=== PATIENT | male | born 1950 | race Caucasian/White ===

== ENCOUNTER 2022-10-26 16:07 | Inpatient (IN) | payer OTHER, MEDICAID ==
[~2022-10-26] VITALS: Ht 167.6 cm; Wt 90.7 kg
--- NOTE | 2022-10-26 02:20 | NUR ---
TRANSPORT PT FROM ER BED 1 TO RM 108B ON CARESCAPE VENTILATOR WITH NO INCIDENT. BMV AT BEDSIDE, PT SPO2 @ 100% THROUGHOUT TRANSPORT. PT NOW IS RESTING COMFORTABLY, CARESCAPE IS PLUGGED INTO RED OUTLET, ALARMS ARE ON AND AUDIBLE, SYMMETRICAL CHEST RISE AND FALL NOTED, NO SIGNS OF RESPIRATORY DISTRESS NOTED AT THIS TIME. RN AT BEDSIDE. Addendum: 10/27/22 at 0531 by Bert Soto RT TIME CORRECTION 22:20
[2022-10-26 16:07] VITALS: BP 145/68
[~2022-10-26 16:07] MED LIST: CARB100C26; GLIP5TAB13
[2022-10-26] MEDS ORDERED: NACL 0.9% 1,000 ML IV ONE (16:25)
[2022-10-26 17:15] LABS: HEMATOCRIT 30.6 % (36-52); HEMOGLOBIN 9.6 g/dL (12.0-18.0); MEAN CORPUSCULAR HEMOGLOBIN 30 pg (27-31); MEAN CORPUSCULAR HGB CONC 31 g/dL (33-37); MEAN CORPUSCULAR VOLUME 94.8 fL (80-94); PLATELET COUNT (AUTO) 591 K/uL (140-450); RED BLOOD CELL COUNT(AUTO) 3.23 MIL/uL (4.20-6.10); RED CELL DISTRIBUTION WIDTH 19.6 % (11.6-13.7); WHITE BLOOD COUNT (AUTO) 16.3 K/uL (4.8-10.8)
[2022-10-26 17:16] LABS: APPEARANCE,URINE SL CLOUDY (CLEAR); BILIRUBIN,URINE NEGATIVE (NEGATIVE); BLOOD, URINE 2+ (NEGATIVE); COLOR,URINE YELLOW (YELLOW); LEUKOCYTE ESTERASE ,URINE 1+ (NEGATIVE); NITRITE, URINE NEGATIVE (NEGATIVE); UGLUCOSE NEGATIVE (NEGATIVE)
[2022-10-26 17:30] LABS: RBC,URINE 11-20 (MOD) /HPF (0-5)
[2022-10-26 17:43] LABS: ALBUMIN 1.7 g/dL (3.4-5.0); ANION GAP 8.1 (8-16); ASPARTATE AMINOTRANSFERASE 20 U/L (15-37); CARBON DIOXIDE 37.1 mmol/L (21-32); CHLORIDE 105 mmol/L (98-107); CREATININE 0.7 mg/dL (0.6-1.3); GFR ARICAN-AMERICAN 143 mL/min (>90); GLUCOSE 210 mg/dL (74-106); POTASSIUM 4.2 mmol/L (3.5-5.1); SODIUM SERUM 146 mmol/L (136-145); TOTAL BILIRUBIN 0.2 mg/dL (0.0-1.0); UREA NITROGEN, BLOOD 33 mg/dL (7-18)
[2022-10-26] MEDS ORDERED: ASPIRIN 81 MG TAB.CHEW PEG ONE (17:55)
[2022-10-26] MEDS ORDERED: FUROSEMIDE 40 MG/4 ML VIAL IVP ONE ×2 (17:55→19:02)
[2022-10-26] MEDS ORDERED: PIPERACILLIN/TAZOBACTAM 3.375 GM in DEXTROSE 5% 50 ML IV ONE (17:55)
[2022-10-26 18:24] LABS: LYMPHOCYTES % (MANUAL) 2 % (20-46); MONOCYTES % (MANUAL) 2 % (5-12)
[2022-10-26] MEDS ORDERED: FURO-570 GT (18:41)
[2022-10-26] MEDS ORDERED: FENT25TD TD (18:41)
[2022-10-26] MEDS ORDERED: KEP500L GT (18:41)
[2022-10-26] MEDS ORDERED: SYN.05 PO (18:41)
[2022-10-26] MEDS ORDERED: BUME1TAB92 GT (18:41)
[2022-10-26] MEDS ORDERED: ACET-8905 GT/PO (18:41)
[2022-10-26] MEDS ORDERED: PRO5 PO (18:41)
[2022-10-26] MEDS ORDERED: OMEPRA (18:41)
[2022-10-26] MEDS ORDERED: HEPARIN PER PHARMACY MC PRN (19:00)
[2022-10-26] MEDS ORDERED: hePARIN / DEXT 5% PREMIX 250 ML IV ONE (19:00)
[2022-10-26] MEDS ORDERED: cefTRIAXone 1,000 MG VIAL ONE (19:01)
[2022-10-26] MEDS ORDERED: ASPIRIN 81 MG TAB.CHEW ONE (19:02)
--- NOTE | 2022-10-26 19:51 | NUR ---
Report received from AM shift nurse. Das catheter inserted successfully per orders. 300 mL urine out, yellow/clear.
--- NOTE | 2022-10-26 19:55 | NUR ---
Patient lying on bed, on monitor, seizure pads in place, pillow support, eyes open, trach and vent, chest rise and fall symmetrical, no s/s of distress or s/s of pain via FLACC scale.
[2022-10-26] MEDS ORDERED: PIPERACILLIN/TAZOBACTAM 3.375 GM VIAL IV ONE (20:11)
--- NOTE | 2022-10-26 20:23 | NUR ---
Attempted to print wound care pictures, unable to due to printer not working. Wounds documented.
--- NOTE | 2022-10-26 20:26 | NUR ---
No PTT result for labs, Heparin drip not started. Dr. Saenz verbally informed. Dr. Saenz verbalized understanding, and is ordering PTT lab.
--- NOTE | 2022-10-26 20:40 | NUR ---
mobile battery technician at bedside drawing PTT and PT/INR labs.
[2022-10-26 21:42] LABS: PROTHROMBIN TIME 10.7 secs (10.8-13.4)
[2022-10-26] MEDS ORDERED: ALBUTEROL SULFATE/IPRATROPIU 3 ML SOL IH PRN (22:00)
[2022-10-26] MEDS ORDERED: ZOLPIDEM 5 MG TAB PO PRN (22:00)
[2022-10-26] MEDS ORDERED: guaiFENesin DM 200/20 MG-10 ML 10 ML UDC PO PRN (22:00)
[2022-10-26] MEDS ORDERED: DOCUSATE SODIUM 100 MG GELCAP PO PRN (22:00)
[2022-10-26] MEDS ORDERED: NACL 0.9% 1,000 ML IV SCH (22:00)
[2022-10-26] MEDS ORDERED: ACETAMINOPHEN 325 MG TAB PO PRN (22:00)
[2022-10-26] MEDS ORDERED: ONDANSETRON 4 MG/2 ML VIAL IM/IVP PRN (22:00)
[2022-10-26] MEDS ORDERED: HYDROcodone/APAP 7.5/325 MG 1 TAB PO PRN (22:00)
--- NOTE | 2022-10-26 22:13 | NUR ---
Patient will be admitted to care of Kirstin REID. Admited to tele. Will go to room 108B. Belongings list completed. Report to Kirstin REID, Kirstin REID verbalized understanding of report, no further questions.
--- NOTE | 2022-10-26 22:20 | NUR ---
PT WAS ADMITTED TO [facility] DEPART FROM ER THRU [facility] WITH DIAGNOSIS OF PNA AND UTI. PT IS APHASIC AND BEDBOUND. PT IS TRACH TO VENT WITH FI02 OF 40, VT-450 RATE OF 12 AND PEEP OF 6. PT IS ON NPO AND WILL START G-TUBE FEENING ON THE MORNING. PT HAS CAGLE CATHETER INSERTED TODAY AT ER. PT HAS LEFT AC GAUGE 18 SALINE LOCK. PT HAS LEFT FOOT OPEN WOUND, SACRAL OPEN WOUND , LEFT SIDE SCROTUM OPEN WOUND. NO S/S OF RESPIRATORY DISTRESS NOTED. ALL SAFETY MEASURES IMPLEMENTED. BED IN LOW POSITION, BED WHEELS ON LOCK AND CALL LIGHT WITHIN REACH.
[2022-10-26 23:16] LABS: CHOL/HDL RATIO 2.3 (1-4.5); FREE T4 (FREE THYROXINE) 1.09 ng/dL (0.76-1.46); MAGNESIUM 2.1 mg/dL (1.8-2.4); THYROID STIMULATING HORMONE 8.92 uIU/mL (0.34-3.74)
[2022-10-27] VITALS (9 sets, daily range): BP systolic 106–143; BP diastolic 38–55
--- NOTE | 2022-10-27 | NUR ---
PT WAS SLEEPING. CHEST RISE AND FALL SYMMETRICALLY NOTED. RESPIRATION IS EVEN AND UNLABORED SATING AT 96%. ALL SAFETY MEASURES IMPLEMENTED. BED IN LOW POSITION, BED WHEELS ON LOCK AND CALL LIGHT WITHIN REACH.
[2022-10-27] MEDS ORDERED: hePARIN / DEXT 5% PREMIX 250 ML IV ONE (02:39)
[2022-10-27] MEDS ORDERED: hePARIN / DEXT 5% PREMIX 250 ML IV PRN (02:45)
--- NOTE | 2022-10-27 03:15 | NUR ---
HEPARIN DRIP WAS GIVEN TO PT WITH STARING RATE OF 900 UNITS/HR AND BOLUS RATE OF 4000 UNITS OF IV PUSH, ACCORDING TO STEVEN PHARMACIST. NO S/S OF RESPIRATORY DISTRESS NOTED. ALL SAFETY MEASURES IMPLEMENTED. BED IN LOW POSITION, BED WHEELS ON LOCK AND CALL LIGHT WITHIN REACH.
[2022-10-27] MEDS ORDERED: PIPERACILLIN/TAZOBACTAM 3.375 GM VIAL IV ONE (05:45)
[2022-10-27] MEDS: PIPERACILLIN/TAZOBACTAM 3.375 GM in DEXTROSE 5% 50 ML IV SCH ×3 (05:52→17:57)
[2022-10-27] MEDS: BLOOD GLUCOSE MONITORING 1 DEV DEV FS SCH ×4 (07:00→20:30)
--- NOTE | 2022-10-27 07:00 | NUR ---
PT BLOOD SUGAR IS 133. NO INSULIN COVERAGE NEEDED.
--- NOTE | 2022-10-27 07:15 | NUR ---
PT IS STABLE. ENDORSED PT TO MORNING SHIFT NURSE FOR CONTINUITY OF CARE.
--- NOTE | 2022-10-27 07:20 | NUR ---
RECEIVED PT FROM NIGHT RN, PT IS ON A TRACH TO VENT, LYING ON THE BED , ON SEIZURE PRECAUTION, CAGLE CATHETER IN PLACE FOR INCONTINENCE, ON ISOLATION FOR CONTACT FOR TRAVON NERY, PT HAS AN IV LINE ON THE LEFT AC G. 18 WITH HEPARIN DRIP INFUSING AT 900 UNITS/HR, NO SIGN OF DISTRESS NOTED AND WILL CONTINUE TO MONITOR PT.
[2022-10-27 07:35] LABS: ANION GAP 6.7 (8-16); CARBON DIOXIDE 37.9 mmol/L (21-32); CREATININE 0.6 mg/dL (0.6-1.3); POTASSIUM 3.6 mmol/L (3.5-5.1)
[2022-10-27 07:39] LABS: BASOPHILS # (AUTO) 0.1 K/uL (0.00-0.22); BASOPHILS % (AUTO) 0.6 % (0.0-2.0); EOSINOPHILS # (AUTO) 0.1 K/uL (0-0.4); EOSINOPHILS % (AUTO) 0.8 % (0.0-4.0); HEMATOCRIT 26.2 % (36-52); HEMOGLOBIN 8.6 g/dL (12.0-18.0); LYMPHOCYTES # (AUTO) 1.2 K/uL (2.0-11.5); LYMPHOCYTES % (AUTO) 13.8 % (20.5-51.1); MEAN CORPUSCULAR HEMOGLOBIN 30 pg (27-31); MEAN CORPUSCULAR HGB CONC 33 g/dL (33-37); MONOCYTES # (AUTO) 0.7 K/uL (0.8-1.0); MONOCYTES % (AUTO) 8.6 % (1.7-9.3); NEUTROPHILS # (AUTO) 6.6 K/uL (1.8-7.7); NEUTROPHILS % (AUTO) 76.2 % (42.2-75.2); PLATELET COUNT (AUTO) 473 K/uL (140-450); RED BLOOD CELL COUNT(AUTO) 2.82 MIL/uL (4.20-6.10); RED CELL DISTRIBUTION WIDTH 18.1 % (11.6-13.7); WHITE BLOOD COUNT (AUTO) 8.7 K/uL (4.8-10.8)
[2022-10-27] MEDS: ALBUTEROL SULFATE/IPRATROPIU 3 ML SOL IH SCH ×3 (08:12→19:21)
--- NOTE | 2022-10-27 08:12 | NUR ---
RECEIVED ON A [employer] R860 VENTILATOR PLUGGED INTO RED OUTLET TOLERATING WITHOUT ADVERSE REACTIOPNS NOTED TO A SHILEY XLT #7 AIRWAY SECURED WITH TRACH TIE CUFF PRESSURE CHECKED NOTED AMBU BAG AT BEDSIDE STAB;E GOOD CHEST RISE DEEP TRACHEAL SUCTION FOR MODERATE YELLOW/HAZY SECRETIONS AIRWAY PATENT
--- NOTE | 2022-10-27 08:59 | NUR ---
PATIENT HAS BEEN SCREENED AND CATEGORIZED HIGH NUTRITION RISK. PATIENT WILL BE SEEN WITHIN 1-[address] RECEIVED REFERRAL REQUEST FOR TF AND NUTRITION CONSULT FOR WOUNDS/PRESSURE ULCERS REVIEWED BY REJI GUNTER RD
[2022-10-27] MEDS ORDERED: LEVOTHYROXINE 0.05 MG TAB PO SCH (09:00)
[2022-10-27] MEDS: levETIRAcetam 100 MG/ML ORASYR GT SCH ×2 (09:00→20:16)
[2022-10-27] MEDS: PANTOPRAZOLE 40 MG TABEC PO SCH (09:00)
[2022-10-27] MEDS ORDERED: MIDODRINE 5 MG TAB PO SCH (09:00)
--- NOTE | 2022-10-27 11:35 | NUR ---
WOUND ASSESSMENT WAS DONE TO PT NOW.
--- NOTE | 2022-10-27 11:47 | NUR ---
WOUND CARE EVALUATION NOTE: SKIN ASSESSMENT DONE WITH PRIMARY RN SUZI ON THIS 72 Y/O PT ADMITTED FROM SNF WITH INITIAL DX PNEUMONIA. PAST MEDICAL HX INCLUDES QUADRIPLEGIA AND HX OF DEMENTIA, STROKE, DM, HTN, CHRONIC RESPIRATORY FAILURE S/P TRACH, APHASIA S/P PEG, CHF AND SEIZURE DISORDER. ALL ABOVE INFORMATION OBTAINED FROM ADMISSION H&P. PT EYES OPEN WHEN TOUCHED. SKIN IS WARM AND DRY, UPPER EXTREMITIES +3 EDEMA WITH XEROSIS. BLE NO HAIR GROWTH, LLE +2 EDEMA. DORSAL PEDAL PULSES PRESENT AND DIMINISHED DUE TO EDEMA. CAPILLARY REFILLED < 2 SEC. X 10 TOES. INCONTINENT OF BOWEL X1 DURING ASSESSMENT. F/C PATENT WITH MODERATE AMOUNT YELLOW COLOR URINE OUT PUT OBSERVED. PLAN OF CARE DISCUSSED WITH PRIMARY RN. POC DISCUSSED WITH DR. STEIN AT BED SIDE, RECOMMEND UROLOGIST CONSULT +3 EDEMA TO SCROTAL AREA INTEGUMENTARY: -ORAL MEMBRANE PALE IN COLOR, DRY SCABBING. LIPS, CHEEKS SKIN DRY, NO OPEN WOUNDS -TRACH SITE AND GT SITE SUSI STOMA SKIN DRY AND CLEAN. SKIN INTACT. -ABDOMEN DISTENDED, SOFT -MOISTURE ASSOCIATED SKIN DAMAGE(MASD) TO: B/L GROINS, MEDIAL THIGHS TO SCROTAL. Scrotal edema with SKIN EROSION 2X1CM SUPERFICIAL DEPTH, MOIST, NO ODOR, SUSI WOUND SKIN MOIST INTACT -PRESSURE INJURY UN-STAGEABLE TO SACROCOCCYX 4X2.5CM, IRREGULAR SHAPE, WOUND BED 100% BROWN/YELLOW SOFT SLOUGH TISSUE, NO ODOR, SUSI-WOUND SKIN MOIST, DENUDED, WITH OLD HEALED SCAR TISSUE -DIABETIC ULCER LEFT PLANTAR FOOT 4.5X4X0.1CM WOUND BED IS RED 75% GRANULATING TISSUE, 25 % SCATTERED BROWN SCABBING SKIN, MOIST, NO ODOR, SUSI WOUND SKIN DRY SCALY SKIN. RECOMMENDATIONS: -UROLOGIST CONSULT SCROTAL EDEMA -ORAL CARE Q SHIFT -APPLY HYDRAGUARD ALL LIMBS AND TRUNK OF BODY, B/L GROINS, MEDIAL THIGHS TO SCROTAL EROSION BID AND PRN IF SOILING -USE ROLLED PILLOWCASE TO ELEVATE/OFFLOAD SCROTAL - CLEANSE SACRALCOCCYX WITH WOUND CLEANSING SOLUTION AND APPLY THERAHONEY GEL COVER WITH DRY DRESSING QD AND PRN IF SOILING -LEFT PLANTAR FOOT APPLY MOIST BETADINE 4X4 GAUZES, WRAP WITH KERLIX ROLL QD AND PRN IF SOILING -APPLY HEEL PROTECTOR AND OFFLOADING BILATERAL HEELS -POSITIONING: TURN AND REPOSITION PATIENT Q 2H OR SOONER USE PILLOWS TO KEEP BONY PROMINENCES FROM DIRECT CONTACT WITH SURFACES USE REPOSITIONING WEDGES TO PROVIDE 30-DEGREE ANGLE FOR SIDE LYING POSITIONS OFFLOADING OR FOAM DRESSING TO ALL TUBING TO PREVENT MEDICAL DEVICES RELATED PRESSURE INJURY -RE-EVALUATING AND MANAGING INCONTINENCE MONITOR SKIN CONDITION DURING POSITION CHANGE DO NOT MASSAGE REDNESS, BONY PROMINENCES FREQUENT SUSI-CARE AND PROVIDE BARRIER CREAMS PRN IF SOILING MOISTURE CONTROL BY OFFER BED PENN/URINAL /ABSORBENT PAD TO WICK AND HOLD MOISTURE. MAY OBTAIN ORDER FOR FLEX SEAL, RECTAL BAG OR CAGLE CATHETER PER PHYSICIAN ORDER UNLESS OTHERWISE CONTRAINDICATED KEEP SKIN DRY AND PROTECT FROM FRICTION -MANAGE FRICTION/SHEAR/MOBILITY KEEP HOB AT THE LOWEST LEVEL OF ELEVATION NO MORE THAN 30 DEGREES UNLESS OTHERWISE CONTRAINDICATED USE LIFT SHEET OR TRANSFER DEVICE TO MOVE PATIENT AND PREVENT LATERAL SHEER. CONSIDER TRAPEZE IF APPROPRIATE PROTECT HEELS, ELBOWS BONY PROMINENCES WITH SKIN BERRIES OR FOAM DRESSING IF EXPOSED TO FRICTION OFFLOAD BILATERAL HEELS BY PLACING PILLOWS UNDER CALVES AT ALL TIMES, UNLESS OTHERWISE CONTRAINDICATED -PRESSURE REDISTRIBUTION SURFACE THERAPY IVANA ISOFLEX RUDDY MATTRESS -NUTRITION: PLEASE FOLLOW RD RECOMMENDATIONS AND OFFER NUTRITION SUPPLEMENTS IF ORDERED.
--- NOTE | 2022-10-27 12:01 | NUR ---
RESTING COMFORTABLY GOOD CHEST RISE DEEP TRACHEAL SUCTION FOR LARGE SEMI THICK TO THIN YELLOW SECRETIONS AIRWAY PATENT SATURATION 97% IN FIO2 OF 40% PEEP 5cmH2O TITRATED FIO2 TO 35% SUZI/RN NOTIFIED
[2022-10-27] MEDS ORDERED: DEXTROSE 5% 1,000 ML IV SCH (12:40)
[2022-10-27] MEDS: THERAHONEY GEL 42.5 GM TP SCH (13:05)
[2022-10-27] MEDS: GAUZE TP SCH (13:05)
[2022-10-27] MEDS: HYDRAGUARD CREAM TP SCH (13:05)
--- NOTE | 2022-10-27 13:15 | NUR ---
PT WAS CLEANED AND REPOSITIONED NOW.
--- NOTE | 2022-10-27 13:45 | NUR ---
FNS RECOMMENDED THAT PT BE GIVEN TUBE FEEDING OF GLUCERNA 1.2 START GOAL IS 10ML, WITH A GOAL OF 65ML/HR, WATER FLUSH OF 150Q4H AND MARKELL BID
--- NOTE | 2022-10-27 15:29 | NUR ---
10/27/22 RD INITIAL ASSESSMENT COMPLETED PLEASE REFER TO NUTRITION ASSESSMENT UNDER CARE ACTIVITY FOR ESTIMATED NUTRITIONAL NEEDS. 1. RECOMMEND INCREASING GLUCERNA 1.2 TO 65 ML/HR GOAL RATE TOLERATED, FWF 150 ML Q4H TOLERATED -RECOMMEND MARKELL BID FOR WOUND SUPPORT (PROVIDES 160 KCAL AND 5 GM PROTEIN DAILY) - WITH MARKELL BID, PROVIDES 1560 ML TOTAL VOLUME, 2032 KCAL, 99 GM PROTEIN AND 2156 ML FREE WATER DAILY MEETING 100% ESTIMATED KCAL NEEDS AND 93% ESTIMATED PROTEIN NEEDS; ADEQUATE - START TF AT 1O ML/HR INCREASE BY 1O ML Q4H UNTIL GOAL IS REACHED TOLERATED 2. MONITOR GI SYMPTOMS, GASTRIC RESIDUALS AND NUTRITION RELATED LAB VALUES 3. CONSULT RD PRN 4. RD TO FOLLOW-UP 3-5 DAYS, MODERATE RISK REVIEWED BY REJI GUNTER RD
[2022-10-27] MEDS: BUMETANIDE 1 MG/4 ML VIAL IV SCH ×3 (15:30→20:13)
--- NOTE | 2022-10-27 15:31 | NUR ---
DR. ROBBINS CAME AND SAW PT AND SAID THAT FLUIDS WILL BE DISCONTINUED FOR PT AND MD WILL ORDER LASIX
--- NOTE | 2022-10-27 15:42 | NUR ---
HEPARIN DRIP WAS STOPPED NOW PER DR. ROBBINS'S VERBAL ORDER.
--- NOTE | 2022-10-27 19:14 | NUR ---
ENDORSED PT TO NIGHT RN FOR CONTINUITY FO CARE, PT IS STABLE AT THIS TIME.
--- NOTE | 2022-10-27 19:15 | NUR ---
RECEIVED PT FROM MORNING SHIFT NURSE. PT IS APHASIC AND BEDBOUND. PT IS TRACH TO VENT WITH FI02 OF 35, VT-450 RATE OF 12 AND PEEP OF 5. PT IS G-TUBE FEEDING RUNNING WITH GLUCERNA 1.2 AT 10CC/HR WITH WATER FLUSH OF 150 EVERY 4HRS. TO INCREASE 10ML EVERY 6 HRS AND GOAL OF 65ML. PT HAS CAGLE CATHETER. PT HAS LEFT AC GAUGE 18 RUNNING WITH NS AT TKO. PT HAS LEFT FOOT OPEN WOUND, UNSTAGABLE ULCER ON SACRAL, LEFT SIDE SCROTUM OPEN WOUND. NO S/S OF RESPIRATORY DISTRESS NOTED. ALL SAFETY MEASURES IMPLEMENTED. BED IN LOW POSITION, BED WHEELS ON LOCK AND CALL LIGHT WITHIN REACH.
--- NOTE | 2022-10-27 19:33 | NUR ---
FOUND PATIENT ON PRVC VT 450, R 12, PEEP OF 5 AND 35% FIO2. SUCTION, FLOWMETER AND AMBU BAG AT BEDSIDE. SUCTIONED THICK WHITE SECRETIONS FROM PATIENTS TRACHEA. VENTILATOR IS PLUGGED INTO RED OUTLET. WILL CONTINUE TO MONITOR PATIENT.
[2022-10-27] MEDS: carvediloL 3.125 MG TAB PO SCH (20:16)
--- NOTE | 2022-10-27 20:16 | NUR ---
ALL SCHEDULED AND PRESCRIBED MEDICATION WAS GIVEN TO PT PER MD ORDER. ALL SAFETY MEASURES IMPLEMENTED. BED IN LOW POSITION, BED WHEELS ON LOCK AND CALL LIGHT WITHIN REACH.
--- NOTE | 2022-10-27 20:30 | NUR ---
PT BLOOD GLUCOSE IS 119. NO INSULIN COVERAGE NEEDED.
--- NOTE | 2022-10-27 22:00 | NUR ---
PT WAS GIVEN WARM BLANKET. NO S/S OF RESPIRATORY DISTRESS NOTED. ALL SAFETY MEASURES IMPLEMENTED. BED IN LOW POSITION, BED WHEELS ON LOCK AND CALL LIGHT WITHIN REACH.
[2022-10-28] VITALS (10 sets, daily range): BP systolic 105–132; BP diastolic 37–40
[2022-10-28] MEDS: PIPERACILLIN/TAZOBACTAM 3.375 GM in DEXTROSE 5% 50 ML IV SCH ×5 (00:13→23:43)
[2022-10-28] MEDS: HYDRAGUARD CREAM TP SCH ×2 (01:01→13:00)
--- NOTE | 2022-10-28 04:00 | NUR ---
PT IS SLEEPING. CHEST RISE AND FALL SYMMETRICALLY NOTED. RESPIRATION IS EVEN AND UNLABORED. ALL SAFETY MEASURES IMPLEMENTED. BED IN LOW POSITION, BED WHEELS ON LOCK AND CALL LIGHT WITHIN REACH.
[2022-10-28] MEDS: BUMETANIDE 1 MG/4 ML VIAL IV SCH ×3 (04:05→20:07)
--- NOTE | 2022-10-28 05:00 | NUR ---
MORNING CARE WITH ORAL CARE WAS DONE TO PT. NO S/S OF RESPIRATORY DISTRESS NOTED. ALL SAFETY MEASURES IMPLEMENTED. BED IN LOW POSITION, BED WHEELS ON LOCK AND CALL LIGHT WITHIN REACH.
[2022-10-28] MEDS: LEVOTHYROXINE 0.025 MG TAB PO SCH (05:38)
[2022-10-28] MEDS: BLOOD GLUCOSE MONITORING 1 DEV DEV FS SCH ×3 (06:51→20:09)
[2022-10-28 07:13] LABS: BASOPHILS # (AUTO) 0.1 K/uL (0.00-0.22); BASOPHILS % (AUTO) 0.8 % (0.0-2.0); EOSINOPHILS # (AUTO) 0.1 K/uL (0-0.4); EOSINOPHILS % (AUTO) 1.4 % (0.0-4.0); HEMATOCRIT 23.6 % (36-52); HEMOGLOBIN 7.9 g/dL (12.0-18.0); LYMPHOCYTES # (AUTO) 1.5 K/uL (2.0-11.5); LYMPHOCYTES % (AUTO) 19.1 % (20.5-51.1); MEAN CORPUSCULAR HEMOGLOBIN 31 pg (27-31); MEAN CORPUSCULAR HGB CONC 33 g/dL (33-37); MEAN CORPUSCULAR VOLUME 91.6 fL (80-94); MONOCYTES # (AUTO) 0.6 K/uL (0.8-1.0); MONOCYTES % (AUTO) 8.4 % (1.7-9.3); NEUTROPHILS # (AUTO) 5.4 K/uL (1.8-7.7); NEUTROPHILS % (AUTO) 70.3 % (42.2-75.2); PLATELET COUNT (AUTO) 434 K/uL (140-450); RED BLOOD CELL COUNT(AUTO) 2.58 MIL/uL (4.20-6.10); RED CELL DISTRIBUTION WIDTH 19.9 % (11.6-13.7); WHITE BLOOD COUNT (AUTO) 7.7 K/uL (4.8-10.8)
--- NOTE | 2022-10-28 07:30 | NUR ---
PT IS STABLE. ENDORSED PT TO MORNING SHIFT NURSE FOR CONTINUITY OF CARE.
[2022-10-28 07:46] LABS: ANION GAP 7.1 (8-16); CREATININE 0.6 mg/dL (0.6-1.3); POTASSIUM 3.1 mmol/L (3.5-5.1)
[2022-10-28 08:07] LABS: T4 (THYROXINE) 7.6 ug/dL (4.5-12.0)
[2022-10-28] MEDS ORDERED: ENOXAPARIN 40 MG/0.4 ML SYR SUBQ SCH (09:00)
[2022-10-28] MEDS ORDERED: ASPIRIN 81 MG TAB.CHEW PO SCH (09:00)
[2022-10-28] MEDS: ATORVASTATIN 20 MG TAB PO SCH (09:45)
[2022-10-28] MEDS: carvediloL 3.125 MG TAB PO SCH ×2 (09:46→20:08)
[2022-10-28] MEDS: lisinopriL 5 MG TAB PO SCH (09:46)
[2022-10-28] MEDS: PANTOPRAZOLE 40 MG TABEC PO SCH (09:46)
[2022-10-28] MEDS: levETIRAcetam 100 MG/ML ORASYR GT SCH ×2 (10:16→20:07)
--- NOTE | 2022-10-28 10:25 | NUR ---
DC PLANNING LATE ENTRY, COLLAT INFO GATHERED AT 1530 ON 10/27 OUTREACHED TO [facility], [facility] ADMIN TO GATHER COLLATERAL INFORMATION. [facility] REPORTS PT IS SUBACUTE PT, ADMISSION DATE 07-05-2016. [facility] REPORTS PTS EMERGENCY CONTACT ÁNGELA VERA, SISTER, AND AMY MANCILLA NIECE, . ÁNGELA IS REPORTED TO BE RESPONSIBLE [employer] AND MDM.PT IS TRAYC TO VENT, NON VERBAL AND IS TOTAL CARE WITH FACILITY. [facility] REPORTS PT IS NOT [facility] CONNECTED NOR CONSERVED TO HER KNOWLEDGE . [facility] REPORTS DC PLAN OS FOR PT TO RETURN TO [facility] WHEN MEDICALLY STABLE
--- NOTE | 2022-10-28 10:30 | NUR ---
NO DISTRESS NOTED EQUAL CHEST RISE AIRWAY PATENT
[2022-10-28] MEDS: POTASSIUM CHLORIDE 10 MEQ TABER PO PRN (12:31)
[2022-10-28] MEDS: GAUZE TP SCH (13:00)
[2022-10-28] MEDS ORDERED: acetaZOLAMIDE sodium 500 MG VIAL IVP SCH (13:10)
[2022-10-28] MEDS: ALBUTEROL SULFATE/IPRATROPIU 3 ML SOL IH SCH ×2 (13:17→20:24)
[2022-10-28] MEDS ORDERED: KCL 20 MEQ/WATER INJ PREMIX 200 ML IV SCH (13:30)
[2022-10-28] MEDS ORDERED: acetaZOLAMIDE sodium 500 MG in NACL 0.9% 50 ML IV SCH (14:00)
[2022-10-28] MEDS: THERAHONEY GEL 42.5 GM TP SCH (16:19)
--- NOTE | 2022-10-28 20:00 | NUR ---
RECEIVED PT IN BED ASLEEP. NO S/SX OF PAIN NOR DISCOMFORT. TRACH TO VENT WITH SETTING ORDERED. G-TUBE IN PLACE, PLACEMENT VERIFIED VIA AUSCULTATION, NO RESIDUAL NOTED FROM G-TUBE, HEAD OF THE BED ELEVATED FOR ASPIRATION PRECAUTION. SKIN WARM AND DRY TO TOUCH. SAFETY PRECAUTION IN PLACE, CALL LIGHT IN REACH.
[2022-10-28] MEDS: INSULIN LISPRO SLIDING SCALE 100 UNITS/ML VIAL SUBQ PRN (20:08)
--- NOTE | 2022-10-28 20:24 | NUR ---
RECEIVED PT TRACH TO VENT WITH A SHILEY XLT 7 AIRWAY PATENT AND SECURE ON A GE CARESCAPE R860 VENTILATOR SETTINGS AC PRVC VT450, RR12, PEEP+6, FIO2 35%. NO SIGNS OF RESPIRATORY DISTRESS NOTED AT THIS TIME PT'S CURRENT SPO2 94%. ANTERIOR AUSCULTATION REVEALED BS COARSE CRACKLES THROUGHOUT ALL LUNG REYNOSO, DEEP TRACHEAL SXN FOR MOD PINK/YELLOW THICK SECRETIONS. HOB ELEVATED, AMBU BAG AT BEDSIDE, VENT PLUGGED INTO RED OUTLET, ALARMS ARE ON AND AUDIBLE. WILL CONTINUE TO MONITOR.
--- NOTE | 2022-10-28 22:00 | NUR ---
REPOSITIONED PT. ORAL CARE RENDERED.
[2022-10-29] VITALS (14 sets, daily range): BP systolic 77–153; BP diastolic 27–51
--- NOTE | 2022-10-29 | NUR ---
PATIENT HAD A BOWEL MOVEMENT, CLEANED PT. G-TUBE SITE CLEANED AND CHANGED DRESSING. REPOSITIONED PT FOR COMFORT. HEAD OF THE BED ELEVATED, NO RESIDUAL FROM G-TUBE.
[2022-10-29] MEDS: HYDRAGUARD CREAM TP SCH ×2 (00:25→13:00)
--- NOTE | 2022-10-29 02:15 | NUR ---
PATIENT IS ASLEEP. NO S/SX OF ACUTE RESPIRATORY DISTRESS. CALL LIGHT IN REACH.
--- NOTE | 2022-10-29 04:00 | NUR ---
REPOSITIONED PATIENT. ORAL CARE RENDERED.
[2022-10-29] MEDS: PIPERACILLIN/TAZOBACTAM 3.375 GM in DEXTROSE 5% 50 ML IV SCH ×3 (05:04→17:47)
[2022-10-29] MEDS: LEVOTHYROXINE 0.025 MG TAB PO SCH (05:38)
--- NOTE | 2022-10-29 06:14 | NUR ---
MADE COMFORTABLE IN BED. ALL NEEDS ATTENDED TO. NO S/SX OF DISTRESS NOTED. SAFETY PRECAUTIONS MAINTAINED DURING THE SHIFT.
[2022-10-29] MEDS: BLOOD GLUCOSE MONITORING 1 DEV DEV FS SCH ×4 (06:30→20:05)
[2022-10-29 07:16] LABS: ANION GAP 7.6 (8-16); CARBON DIOXIDE 37.4 mmol/L (21-32); CREATININE 0.6 mg/dL (0.6-1.3)
[2022-10-29] MEDS: ALBUTEROL SULFATE/IPRATROPIU 3 ML SOL IH SCH ×2 (07:24→13:01)
--- NOTE | 2022-10-29 07:26 | NUR ---
ENDORSED CARE TO AM NURSE FOR CONTINUITY OF CARE. PT ASLEEP. NO RESPIRATORY DISTRESS.
[2022-10-29] MEDS ORDERED: NACL 0.9% 500 ML IV SCH (08:15)
[2022-10-29 08:20] LABS: BASOPHILS # (AUTO) 0.1 K/uL (0.00-0.22); EOSINOPHILS # (AUTO) 0.2 K/uL (0-0.4); EOSINOPHILS % (AUTO) 2.5 % (0.0-4.0); HEMATOCRIT 23.8 % (36-52); HEMOGLOBIN 7.9 g/dL (12.0-18.0); LYMPHOCYTES # (AUTO) 1.6 K/uL (2.0-11.5); LYMPHOCYTES % (AUTO) 21.5 % (20.5-51.1); MEAN CORPUSCULAR HEMOGLOBIN 31 pg (27-31); MEAN CORPUSCULAR HGB CONC 33 g/dL (33-37); MEAN CORPUSCULAR VOLUME 93.9 fL (80-94); MONOCYTES # (AUTO) 0.7 K/uL (0.8-1.0); NEUTROPHILS # (AUTO) 4.9 K/uL (1.8-7.7); PLATELET COUNT (AUTO) 341 K/uL (140-450); RED BLOOD CELL COUNT(AUTO) 2.54 MIL/uL (4.20-6.10); RED CELL DISTRIBUTION WIDTH 20.1 % (11.6-13.7); WHITE BLOOD COUNT (AUTO) 7.5 K/uL (4.8-10.8)
--- NOTE | 2022-10-29 08:20 | NUR ---
Patient blood pressure 77/27 with heart rate of 69. Dr. Daniel notified. NS 500ML bolus ordered and started. Will recheck blood pressure after bolus. Alicia Cantrell RN.
[2022-10-29] MEDS: lisinopriL 5 MG TAB PO SCH (09:00)
[2022-10-29] MEDS: carvediloL 3.125 MG TAB PO SCH ×2 (09:00→20:05)
[2022-10-29] MEDS: BUMETANIDE 1 MG/4 ML VIAL IV SCH ×2 (09:00→20:05)
--- NOTE | 2022-10-29 09:20 | NUR ---
PATIENT BLOOD PRESSURE IS NOW 130/37 WITH HEART RATE OF 79 AFTER NS 500ML BOLUS. DR. VILLALOBOS NOTIFIED. Alicia BAKER RN.
[2022-10-29] MEDS: levETIRAcetam 100 MG/ML ORASYR GT SCH ×2 (09:36→20:05)
[2022-10-29] MEDS: PANTOPRAZOLE 40 MG TABEC PO SCH (09:37)
[2022-10-29] MEDS: ATORVASTATIN 20 MG TAB PO SCH (09:37)
[2022-10-29] MEDS: THERAHONEY GEL 42.5 GM TP SCH (13:00)
[2022-10-29] MEDS: GAUZE TP SCH (13:00)
[2022-10-29] MEDS ORDERED: acetaZOLAMIDE sodium 500 MG VIAL IVP SCH (13:30)
--- NOTE | 2022-10-29 19:30 | NUR ---
RECEIVED PT IN BED ASLEEP. NO S/SX OF PAIN NOR DISCOMFORT. NO S/SX OF ACUTE RESPIRATORY DISTRESS. TRACH TO VENT WITH SETTING ORDERED SAT 98%. G TUBE PLACEMENT VERIFIED VIA AUSCULTATION, 5 CC RESIDUAL NOTED, HEAD OF THE BED ELEVATED FOR ASPIRATION PRECAUTION. SKIN WARM AND DRY TO TOUCH. BED IN THE LOWEST AND LOCKED POSITION FOR SAFETY, CALL LIGHT IN REACH.
[2022-10-29] MEDS: INSULIN LISPRO SLIDING SCALE 100 UNITS/ML VIAL SUBQ PRN (20:05)
--- NOTE | 2022-10-29 22:02 | NUR ---
PATIENT HAD A BOWEL MOVEMENT, CLEANED PT. REPOSITIONED PT. HEAD OF THE BED ELEVATED.
--- NOTE | 2022-10-29 23:53 | NUR ---
bp-144/33, noted diastolic low, call placed to dr. fritz product consultant for tonight. awaiting call back. hemodialysis charge nurse also made aware.
--- NOTE | 2022-10-29 23:55 | NUR ---
INFORMED DR. DOMINGUEZ OF BP-144/33 , INFORMED THAT PT HAS BP MEDS AND BUMEX, GAVE PARAMETERS FOR MEDICATIONS. Addendum: 10/30/22 at 0001 by Tamika Salguero RN PER DR. DOMINGUEZ PARAMETER ONLY FOR BP MEDS AND NOT BUMEX FOR NOW. WILL CARRY OUT ORDER.
[2022-10-30] VITALS (9 sets, daily range): BP systolic 95–144; BP diastolic 31–72
--- NOTE | 2022-10-30 | NUR ---
PATIENT NOW NPO ORDERED. NO RESIDUAL FROM G-TUBE. REPOSITIONED PT.
[2022-10-30] MEDS: PIPERACILLIN/TAZOBACTAM 3.375 GM in DEXTROSE 5% 50 ML IV SCH ×4 (00:02→17:50)
[2022-10-30] MEDS: HYDRAGUARD CREAM TP SCH ×2 (00:02→12:41)
[2022-10-30] MEDS: ALBUTEROL SULFATE/IPRATROPIU 3 ML SOL IH SCH ×4 (04:35→19:00)
[2022-10-30] MEDS: LEVOTHYROXINE 0.025 MG TAB PO SCH (05:33)
[2022-10-30] MEDS: BLOOD GLUCOSE MONITORING 1 DEV DEV FS SCH ×4 (06:33→20:39)
--- NOTE | 2022-10-30 06:35 | NUR ---
PATIENT IS ASLEEP. ALL NEEDS ATTENDED TO. NO S/SX OF DISTRESS NOTED. SAFETY PRECAUTIONS MAINTAINED DURING THE SHIFT.
[2022-10-30 07:16] LABS: BASOPHILS # (AUTO) 0.1 K/uL (0.00-0.22); BASOPHILS % (AUTO) 0.4 % (0.0-2.0); EOSINOPHILS # (AUTO) 0.1 K/uL (0-0.4); EOSINOPHILS % (AUTO) 0.4 % (0.0-4.0); HEMATOCRIT 23.8 % (36-52); HEMOGLOBIN 7.8 g/dL (12.0-18.0); MEAN CORPUSCULAR HEMOGLOBIN 30 pg (27-31); MEAN CORPUSCULAR HGB CONC 33 g/dL (33-37); MEAN CORPUSCULAR VOLUME 92.4 fL (80-94); MONOCYTES # (AUTO) 0.6 K/uL (0.8-1.0); MONOCYTES % (AUTO) 4.6 % (1.7-9.3); NEUTROPHILS # (AUTO) 11.8 K/uL (1.8-7.7); PLATELET COUNT (AUTO) 360 K/uL (140-450); RED BLOOD CELL COUNT(AUTO) 2.58 MIL/uL (4.20-6.10); WHITE BLOOD COUNT (AUTO) 13.6 K/uL (4.8-10.8)
[2022-10-30 07:28] LABS: CARBON DIOXIDE 36.2 mmol/L (21-32); CREATININE 0.7 mg/dL (0.6-1.3)
[2022-10-30 08:14] LABS: ANION GAP 4.7 (8-16)
[2022-10-30 08:22] LABS: POTASSIUM 2.9 mmol/L (3.5-5.1)
[2022-10-30 08:34] LABS: LYMPHOCYTES % (AUTO) 7.4 % (20.5-51.1); NEUTROPHILS % (AUTO) 87.2 % (42.2-75.2)
[2022-10-30] MEDS: levETIRAcetam 100 MG/ML ORASYR GT SCH ×2 (09:14→20:58)
[2022-10-30] MEDS: BUMETANIDE 1 MG/4 ML VIAL IV SCH ×2 (09:15→21:00)
[2022-10-30] MEDS: carvediloL 3.125 MG TAB PO SCH ×2 (09:17→21:00)
[2022-10-30] MEDS: ATORVASTATIN 20 MG TAB PO SCH (09:17)
[2022-10-30] MEDS: PANTOPRAZOLE 40 MG TABEC PO SCH (09:17)
[2022-10-30] MEDS: lisinopriL 5 MG TAB PO SCH (09:18)
[2022-10-30] MEDS: POTASSIUM CHLORIDE 10 MEQ TABER PO PRN (09:25)
[2022-10-30] MEDS: GAUZE TP SCH (12:41)
[2022-10-30] MEDS: THERAHONEY GEL 42.5 GM TP SCH (12:42)
[2022-10-30] MEDS ORDERED: ALBUMIN HUMAN 25% 50 ML IV SCH (13:00)
--- NOTE | 2022-10-30 19:30 | NUR ---
RECEIVED PATIENT LYING ON THE BED, HOB ELEVATED FOR ASPIRATION PRECAUTION. PATIENT IS TRACH TO VENT SETTING FI02 30, VT 450, RATE 12 AND PEEP 5, SATING @ 100%. NO SIGNS OF PAIN/DISCOMFORT NOTED, NO SIGNS OF DISTRESS NOTED. SAFETY PRECAUTIONS IN PLACE, BED IN LOW AND LOCKED POSITION.
--- NOTE | 2022-10-30 21:00 | NUR ---
DUE MEDICATIONS GIVEN VIA G TUBE, PLACEMENT VERIFIED, 5CC RESIDUAL NOTED. COREG NOT GIVEN, BP 129/45MM HG. SAFETY PRECAUTIONS IN PLACE, WILL CONTINUE TO MONITOR THE PATIENT.
--- NOTE | 2022-10-30 22:10 | NUR ---
PATIENT REPOSITIONED, HOB ELEVATED. PATIENT HAS SMALL BM. ALL SAFETY PRECAUTIONS MAINTAINED.
[2022-10-31] VITALS: BP 130/36
[2022-10-31] MEDS: PIPERACILLIN/TAZOBACTAM 3.375 GM in DEXTROSE 5% 50 ML IV SCH ×3 (00:28→12:18)
--- NOTE | 2022-10-31 00:30 | NUR ---
SCHEDULED ZOSYN GIVEN ORDERED. VITALS T 98.7, P 85, BP 130/36, RESP 13 AND SATING 100%. SAFETY PRECAUTIONS MAINTAINED.WILL CONTINUE TO MONITOR THE PATIENT.
[2022-10-31] MEDS: HYDRAGUARD CREAM TP SCH ×2 (01:48→13:32)
[2022-10-31 04:00] VITALS: BP 117/39
--- NOTE | 2022-10-31 04:30 | NUR ---
MORNING CARE DONE, MOUTH CARE DONE, TOLERATED WELL, SATING @100@. HOB ELEVATED FOR ASPIRATION PRECAUTION. NO SIGNS OF PAIN NOTED, NO SIGNS OF DISTRESS NOTED. PATIENT REPOSITIONED. ALL SAFETY PRECAUTIONS IN PLACE. BED IN LOW AND LOCKED POSITION. WILL CONTINUE TO MONITOR THE PATIENT.
[2022-10-31] MEDS: LEVOTHYROXINE 0.025 MG TAB PO SCH (05:38)
[2022-10-31] MEDS: BLOOD GLUCOSE MONITORING 1 DEV DEV FS SCH ×4 (06:31→21:40)
--- NOTE | 2022-10-31 07:22 | NUR ---
ENDORSED PATIENT TO DAY NURSE FOR CONTINUITY OF CARE. NEEDS MET THROUGHOUT THE SHIFT. PATIENT IS IN STABLE CONDITION.
[2022-10-31] MEDS: ALBUTEROL SULFATE/IPRATROPIU 3 ML SOL IH SCH ×3 (07:42→19:49)
[2022-10-31 07:49] LABS: BASOPHILS # (AUTO) 0.1 K/uL (0.00-0.22); BASOPHILS % (AUTO) 0.5 % (0.0-2.0); EOSINOPHILS # (AUTO) 0.1 K/uL (0-0.4); EOSINOPHILS % (AUTO) 0.6 % (0.0-4.0); HEMATOCRIT 23.5 % (36-52); HEMOGLOBIN 7.5 g/dL (12.0-18.0); LYMPHOCYTES # (AUTO) 0.9 K/uL (2.0-11.5); MEAN CORPUSCULAR HEMOGLOBIN 30 pg (27-31); MEAN CORPUSCULAR HGB CONC 32 g/dL (33-37); MEAN CORPUSCULAR VOLUME 93.3 fL (80-94); MONOCYTES # (AUTO) 1.2 K/uL (0.8-1.0); MONOCYTES % (AUTO) 6.9 % (1.7-9.3); PLATELET COUNT (AUTO) 304 K/uL (140-450); RED BLOOD CELL COUNT(AUTO) 2.52 MIL/uL (4.20-6.10); RED CELL DISTRIBUTION WIDTH 20.5 % (11.6-13.7); WHITE BLOOD COUNT (AUTO) 17.2 K/uL (4.8-10.8)
[2022-10-31 08:00] VITALS: BP 142/46
[2022-10-31 08:18] LABS: CREATININE 0.8 mg/dL (0.6-1.3)
[2022-10-31 08:33] LABS: CARBON DIOXIDE 34.1 mmol/L (21-32)
[2022-10-31 08:35] LABS: POTASSIUM 2.8 mmol/L (3.5-5.1)
[2022-10-31 08:36] LABS: ANION GAP 9.7 (8-16)
[2022-10-31] MEDS: levETIRAcetam 100 MG/ML ORASYR GT SCH ×2 (09:15→21:59)
[2022-10-31] MEDS: BUMETANIDE 1 MG/4 ML VIAL IV SCH ×2 (09:16→21:00)
[2022-10-31] MEDS: carvediloL 3.125 MG TAB PO SCH ×2 (09:16→21:00)
[2022-10-31] MEDS: ATORVASTATIN 20 MG TAB PO SCH (09:16)
[2022-10-31] MEDS: PANTOPRAZOLE 40 MG TABEC PO SCH (09:17)
[2022-10-31] MEDS: lisinopriL 5 MG TAB PO SCH (09:17)
[2022-10-31] MEDS: POTASSIUM CHLORIDE 10 MEQ TABER PO PRN ×2 (09:27→17:48)
[2022-10-31 12:00] VITALS: BP 132/44
[2022-10-31] MEDS: THERAHONEY GEL 42.5 GM TP SCH (13:32)
[2022-10-31] MEDS: GAUZE TP SCH (13:32)
[2022-10-31] MEDS: ALBUMIN HUMAN 25% 50 ML IV SCH ×2 (13:33→21:54)
[2022-10-31 16:00] VITALS: BP 116/43
--- NOTE | 2022-10-31 19:35 | NUR ---
RECEIVED PATIENT LYING ON THE BED, HOB ELEVATED FOR ASPIRATION PRECAUTION, TRACH TO VENT SETTING PER ORDERED. NO S/S OF PAIN/DISCOMFORT NOTED, NO SIGNS OF DISTRESS NOTED. CAGLE DRAINING LIGHT YELLOW COLORED URINE TO BAG. ALL SAFETY PRECAUTIONS MAINTAINED.
[2022-10-31 20:00] VITALS: BP 114/41
--- NOTE | 2022-10-31 21:55 | NUR ---
SCHEDULED MEDICATIONS GIVEN ORDERED. BUMEX AND COREG NOT GIVEN, PATIENT'S BP 114/41. NO SIGNS OF DISTRESS NOTED. SAFETY MEASURES IN PLACE. WILL CONTINUE TO MONITOR THE PATIENT.
[2022-11-01] VITALS: BP 114/43
--- NOTE | 2022-11-01 00:30 | NUR ---
PATIENT REPOSITIONED, NO SIGNS OF DISTRESS NOTED, NO SIGNS OF PAIN NOTED. ALL SAFETY PRECAUTIONS MAINTAINED.
[2022-11-01] MEDS: HYDRAGUARD CREAM TP SCH ×2 (01:27→12:16)
--- NOTE | 2022-11-01 03:55 | NUR ---
MORNING CARE DONE, PATIENT HAS WATERY LARGE BM, MOUTH CARE DONE, PATIENT SUCTIONED, TOLERATED WELL SATING @99%, NO SIGNS OF DISTRESS NOTED, NO SIGNS OF PAIN/DISCOMFORT NOTED. HOB ELEVATED FOR ASPIRATION PRECAUTIONS. CAGLE EMPTIED, LIGHT YELLOW COLORED URINE IN BAG. BILATERAL HEEL PROTECTOR IN PLACE. BED IN LOW AND LOCKED POSITION, SAFETY MEASURES IN PLACE. WILL CONTINUE TO MONITOR THE PATIENT.
[2022-11-01 04:00] VITALS: BP 148/48
[2022-11-01] MEDS: ALBUMIN HUMAN 25% 50 ML IV SCH ×2 (04:39→12:15)
--- NOTE | 2022-11-01 04:39 | NUR ---
SCHEDULED ALBUMIN GIVEN ORDERED. NO S/S OF DISTRESS NOTED, NO SIGNS OF PAIN/DISCOMFORT NOTED. WILL CONTINUE TO MONITOR THE PATIENT.
[2022-11-01] MEDS: LEVOTHYROXINE 0.025 MG TAB PO SCH (06:12)
[2022-11-01] MEDS: BLOOD GLUCOSE MONITORING 1 DEV DEV FS SCH ×4 (06:45→21:17)
--- NOTE | 2022-11-01 07:20 | NUR ---
ENDORSED PATIENT TO DAY NURSE FOR CONTINUITY OF CARE. NEEDS MET THROUGHOUT THE SHIFT. PATIENT IS STABLE.
--- NOTE | 2022-11-01 07:30 | NUR ---
RECEIVED REPORT FROM NIGHTSHIFT NURSEPADMINI AND STATES PT'S BP MEDS HAS BEEN HELD AND PT IS NPO DUE TO PLANS FOR THORACENTESIS. RECENT BP 148/48. PT NONVERBAL. PT IS TRACH TO VENT. FIO2 @ 35%, TV 450, RR 12, PEEP 5. O2 SATURATION @ 96%. HOB ELEVATED. CAGLE VIA GRAVITY. L FOOT #18, TKO AND LAC #18 SL. CONTACT PRECAUTIONS IN PLACE. ALL SAFETY MEASURES IN PLACE.
[2022-11-01 07:34] LABS: ANION GAP 16.4 (8-16); CARBON DIOXIDE 29.3 mmol/L (21-32); CREATININE 0.8 mg/dL (0.6-1.3); POTASSIUM 3.7 mmol/L (3.5-5.1)
[2022-11-01 08:00] VITALS: BP 118/49
[2022-11-01] MEDS ORDERED: hydrALAZINE 20 MG/ML VIAL IVP PRN (08:20)
[2022-11-01] MEDS ORDERED: LABETALOL 20 MG/4 ML VIAL IVP ONE (08:22)
[2022-11-01] MEDS ORDERED: LABETALOL 20 MG/4 ML VIAL IVP SCH (08:24)
[2022-11-01 08:28] LABS: HEMATOCRIT 27.8 % (36-52); HEMOGLOBIN 8.8 g/dL (12.0-18.0); MEAN CORPUSCULAR HEMOGLOBIN 30 pg (27-31); MEAN CORPUSCULAR HGB CONC 32 g/dL (33-37); MEAN CORPUSCULAR VOLUME 95.1 fL (80-94); PLATELET COUNT (AUTO) 357 K/uL (140-450); RED BLOOD CELL COUNT(AUTO) 2.92 MIL/uL (4.20-6.10); RED CELL DISTRIBUTION WIDTH 20.3 % (11.6-13.7); WHITE BLOOD COUNT (AUTO) 15.3 K/uL (4.8-10.8)
--- NOTE | 2022-11-01 08:30 | NUR ---
COMPENSATION SUPERVISOR REPORTED BP 225/58, HR 144. BP RECHECK WITH BP 224/69, HR 142. 02 SATURATION @ 88%. INCREASED FIO2 TO 100% WITH O2 @ 96%. RT CALLED AND RAPID CALLED. CHARGE NURSE NOTIFIED. CONTACTED AND GELA FOR LABETOLOL AND PRN HYDRALAZINE. SEE NEW ORDERS. ALSO ORDER FOR LACTIC ACID AND BLOOD CULTURES. ONE TIME DOSE, LABETOLOL GIVEN IVP AND CARVEDILOL IVP HELD. RECHECK IN 10 MINUTES WITH HR @ 91, BP 118/49, O2 SATURATION @ 95% WITH FIO2 @ 35%. PT STABLE AT THIS TIME. HOB ELEVATED. ALL SAFETY MEASURES IN PLACE. Addendum: 11/01/22 at 1230 by Agency 09 JEANETTE REID ADDED NOTES
--- NOTE | 2022-11-01 08:31 | NUR ---
POUND ATTENDANT REPORTED BP 225/58, HR 144. BP RECHECK WITH BP 224/69, HR 142. 02 SATURATION @ 88%. INCREASED FIO2 TO 100% WITH O2 @ 96%. RT CALLED AND RAPID CALLED AT 0815. CHARGE NURSE NOTIFIED. CONTACTED . AND GELA FOR LABETOLOL AND PRN HYDRALAZINE. SEE NEW ORDERS. ALSO ORDER FOR LACTIC ACID AND BLOOD CULTURES. ONE TIME DOSE, LABETOLOL GIVEN IVP AND SCHEDULED CARVEDILOL HELD. RECHECK IN 10 MINUTES WITH HR @ 91, BP 118/49, O2 SATURATION @ 95% WITH FIO2 @ 35%. PT STABLE AT THIS TIME. HOB ELEVATED. ALL SAFETY MEASURES IN PLACE.
[2022-11-01] MEDS: ATORVASTATIN 20 MG TAB PO SCH (08:33)
[2022-11-01] MEDS: lisinopriL 5 MG TAB PO SCH (08:33)
[2022-11-01] MEDS: levETIRAcetam 100 MG/ML ORASYR GT SCH ×2 (08:35→21:16)
[2022-11-01] MEDS: BUMETANIDE 1 MG/4 ML VIAL IV SCH ×3 (08:36→21:15)
[2022-11-01] MEDS: PANTOPRAZOLE 40 MG TABEC PO SCH (08:37)
[2022-11-01] MEDS: carvediloL 3.125 MG TAB PO SCH ×2 (08:37→21:14)
--- NOTE | 2022-11-01 10:25 | NUR ---
LACTIC ACID REPORTED TO DR. LAMB. NO NEW ORDERS.
[2022-11-01 11:34] LABS: LYMPHOCYTES % (MANUAL) 6 % (20-46); MONOCYTES % (MANUAL) 5 % (5-12)
--- NOTE | 2022-11-01 11:44 | NUR ---
BP 135/54, HR 104. SPOKE WITH DR. LAMB AND ORDER TO HOLD NEXT SCHEDULED ALBUMIN.
[2022-11-01 12:00] VITALS: BP 117/46
[2022-11-01] MEDS: THERAHONEY GEL 42.5 GM TP SCH (12:16)
[2022-11-01] MEDS: GAUZE TP SCH (12:16)
--- NOTE | 2022-11-01 14:00 | NUR ---
CONTACTED [email or web address] AND EXPLAINED PT NEEDS THORACENTESIS. [email or web address] STATES SHE WILL CONTACT DR. COELLO REGARDING THORACENTESIS AND CALL BACK.
--- NOTE | 2022-11-01 15:14 | NUR ---
11/01/22 RD FOLLOW UP COMPLETED PLEASE REFER TO NUTRITION ASSESSMENT UNDER CARE ACTIVITY FOR ESTIMATED NUTRITIONAL NEEDS. 1. WHEN/IF MEDICALLY APPROPRIATE, RECOMMEND GLUCERNA 1.2 AT 65 ML/HR GOAL RATE TOLERATED, FWF 150 ML Q4H TOLERATED WITH MARKELL BID FOR WOUND SUPPORT (PROVIDES 160 KCAL AND 5 GM PROTEIN DAILY) - WITH MARKELL BID, PROVIDES 1560 ML TOTAL VOLUME, 2032 KCAL, 99 GM PROTEIN AND 2156 ML FREE WATER DAILY MEETING 100% ESTIMATED KCAL NEEDS AND 93% ESTIMATED PROTEIN NEEDS; ADEQUATE - START TF AT 1O ML/HR INCREASE BY 1O ML Q4H UNTIL GOAL IS REACHED TOLERATED 2. MONITOR NPO STATUS, GI SYMPTOMS, GASTRIC RESIDUALS AND NUTRITION RELATED LAB VALUES 3. CONSULT RD PRN 4. RD TO FOLLOW-UP 2-3 DAYS, HIGH RISK REVIEWED BY REJI GUNTER RD
[2022-11-01 16:00] VITALS: BP 129/62
--- NOTE | 2022-11-01 16:00 | NUR ---
CONTACTED [facility] FOR THORACENTESIS UPDATE WITH NO PICKUP.
--- NOTE | 2022-11-01 18:41 | NUR ---
SPOKE WITH T[employer]ING [employer] LIBRARY CLERK (SUMMER) AND SHE STATES DR. LAMB NUMBER WAS PROVIDED TO DR. COELLO TO DISCUSS THE POSSIBLE THORACENTESIS.
--- NOTE | 2022-11-01 19:24 | NUR ---
REPORT GIVEN TO NIGHTSHIFT NURSEORQUIDEA FOR CONTINUITY OF CARE.
[2022-11-01] MEDS: ALBUTEROL SULFATE/IPRATROPIU 3 ML SOL IH SCH ×2 (19:26→19:28)
[2022-11-01 21:22] VITALS: BP 134/47
[2022-11-02] VITALS: BP 132/75
[2022-11-02] MEDS: HYDRAGUARD CREAM TP SCH ×2 (01:13→13:00)
[2022-11-02 04:00] VITALS: BP 149/59
[2022-11-02] MEDS: LEVOTHYROXINE 0.025 MG TAB PO SCH (05:13)
--- NOTE | 2022-11-02 05:57 | NUR ---
0600: Patient had an episode of ST 130 saturation 90% after trach suctioning by RT. RT assess for patency of trach. ST possible due to discomfort, comfort measure provided. HR eventually lowered to 86 with 96% saturation. IV access intact. Hygiene care provided. AM for thoracentesis Addendum: 11/02/22 at 0604 by Agency JEANETTE RN 0700: Will endorse care to AM shift JEANETTE
[2022-11-02] MEDS: ALBUTEROL SULFATE/IPRATROPIU 3 ML SOL IH SCH ×3 (07:00→20:50)
[2022-11-02 07:30] LABS: ANION GAP 16.7 (8-16); POTASSIUM 3.7 mmol/L (3.5-5.1)
[2022-11-02] MEDS: BLOOD GLUCOSE MONITORING 1 DEV DEV FS SCH ×4 (07:30→21:36)
[2022-11-02 07:40] LABS: BASOPHILS % (AUTO) 0.4 % (0.0-2.0); EOSINOPHILS # (AUTO) 0.1 K/uL (0-0.4); EOSINOPHILS % (AUTO) 0.4 % (0.0-4.0); HEMATOCRIT 22.8 % (36-52); HEMOGLOBIN 7.6 g/dL (12.0-18.0); LYMPHOCYTES # (AUTO) 0.6 K/uL (2.0-11.5); LYMPHOCYTES % (AUTO) 4.9 % (20.5-51.1); MEAN CORPUSCULAR HEMOGLOBIN 30 pg (27-31); MEAN CORPUSCULAR HGB CONC 33 g/dL (33-37); MEAN CORPUSCULAR VOLUME 91.1 fL (80-94); MONOCYTES # (AUTO) 0.7 K/uL (0.8-1.0); MONOCYTES % (AUTO) 5.9 % (1.7-9.3); NEUTROPHILS # (AUTO) 11.1 K/uL (1.8-7.7); NEUTROPHILS % (AUTO) 88.4 % (42.2-75.2); PLATELET COUNT (AUTO) 317 K/uL (140-450); RED BLOOD CELL COUNT(AUTO) 2.51 MIL/uL (4.20-6.10); RED CELL DISTRIBUTION WIDTH 18.9 % (11.6-13.7); WHITE BLOOD COUNT (AUTO) 12.6 K/uL (4.8-10.8)
[2022-11-02 08:00] VITALS: BP 94/34
--- NOTE | 2022-11-02 08:13 | NUR ---
GOT REPORT FROM THE NURSE PT IS SLEEPING , NO SOB THE FEEDING INFUSING ORDERED. [id number]
--- NOTE | 2022-11-02 08:15 | NUR ---
CORRECTION ON THE FEEDING THERE IS NO FEEDING PT NPO [id number]
[2022-11-02] MEDS: BUMETANIDE 1 MG/4 ML VIAL IV SCH ×2 (09:17→21:00)
[2022-11-02] MEDS: carvediloL 3.125 MG TAB PO SCH ×2 (09:17→21:00)
[2022-11-02] MEDS: ATORVASTATIN 20 MG TAB PO SCH (09:17)
[2022-11-02] MEDS: PANTOPRAZOLE 40 MG TABEC PO SCH (09:18)
[2022-11-02] MEDS: lisinopriL 5 MG TAB PO SCH (09:18)
[2022-11-02] MEDS: levETIRAcetam 100 MG/ML ORASYR GT SCH ×2 (09:19→21:36)
[2022-11-02 12:00] VITALS: BP 89/49
[2022-11-02] MEDS: THERAHONEY GEL 42.5 GM TP SCH (13:00)
[2022-11-02] MEDS: GAUZE TP SCH (13:00)
[2022-11-02] MEDS ORDERED: FUROSEMIDE 40 MG/4 ML VIAL IVP SCH ×2 (13:35→15:35)
[2022-11-02] MEDS ORDERED: SPIRONOLACTONE 50 MG TAB PO SCH ×2 (13:37→15:35)
[2022-11-02] MEDS ORDERED: ALBUMIN HUMAN 25% 50 ML IV SCH (15:35)
[2022-11-02] MEDS ORDERED: LIDOCAINE MPF 1% 5 ML ONE (15:54)
[2022-11-02 16:00] VITALS: BP 98/37
--- NOTE | 2022-11-02 19:30 | NUR ---
RECEIVED REPORT FROM DAY SHIFT NURSE FOR CONTINUITY OF CARE. PATIENT ALERT AND ORIENTED X 0, OPENS EYES, DOES NOT TRACK. ON TRACH TO VENT FIO2 45%, O2 SAT AT 100%., NO S/SX OF DISTRESS. SKIN WARM, DRY AND INTACT. IV ON L FOOT G24,SL. ALL PRECAUTIONS IN PLACE.. WILL CONTINUE TO MONITOR.
[2022-11-02 20:00] VITALS: BP 118/44
--- NOTE | 2022-11-02 21:00 | NUR ---
SCHEDULED MEDICATIONS GIVEN. PT TOLERATED WELL. HELD BUMEX AND CARVEDILOL DUE TO LOW BP. 94/39
--- NOTE | 2022-11-02 23:00 | NUR ---
PICC LINE PLACE BY [facility] PICC LINE NURSE ON R UPPER ARM, CXR CONFIRMED PLACEMENT AND READY TO USE.
[2022-11-03] VITALS (8 sets, daily range): BP systolic 125–171; BP diastolic 40–50
[2022-11-03] MEDS: HYDRAGUARD CREAM TP SCH ×2 (01:08→13:00)
--- NOTE | 2022-11-03 01:24 | NUR ---
PT ASLEEP. NO S/SX OF DISTRESS NOTED. BREATHING EVEN AND UNLABORED. VITALS STABLE. ALL PRECAUTIONS IN PLACE. WILL CONTINUE TO MONITOR.
[2022-11-03] MEDS: LEVOTHYROXINE 0.025 MG TAB PO SCH (06:24)
[2022-11-03] MEDS: BLOOD GLUCOSE MONITORING 1 DEV DEV FS SCH ×4 (06:25→20:49)
--- NOTE | 2022-11-03 06:47 | NUR ---
PT IS STABLE. NO ACUTE EVENTS THROUGHOUT THE NIGHT. NO S/SX OF DISTRESS AT THIS MOMENT. ALL NEEDS ATTENDED. ALL PRECAUTIONS IN PLACE. CALL LIGHT WITHIN REACH. WILL CONTINUE TO MONITOR.
--- NOTE | 2022-11-03 07:50 | NUR ---
11/03/2022 0735: PT RESTING IN BED, NO GUARDING OR GRIMACING NOTED. NO ACUTE DISTRESS NOTED AT THIS TIME. [id number].
[2022-11-03] MEDS: ALBUTEROL SULFATE/IPRATROPIU 3 ML SOL IH SCH ×3 (08:06→19:29)
--- NOTE | 2022-11-03 08:06 | NUR ---
RECEIVED ON A [employer]APE R860 VENTILATOR PLUGGED INTO RED OUTLET TOLERATING WELL WITHOUT ADVERSE REACTIONS NOTED TO A SHILEY XLT #7 AIRWAY SECURED WITH A MADISON TRACH TIE CUFF PRESSURE CHECKED NOTED AMBU BAG AT BEDSIDE RESTING WELL GOOD CHEST RISE DEEP TRACHEAL SUCTION FOE LARGE THIN YELLOW SECRETIONS AIRWAY PATENT
[2022-11-03] MEDS: PANTOPRAZOLE 40 MG TABEC PO SCH (08:54)
[2022-11-03] MEDS: ATORVASTATIN 20 MG TAB PO SCH (08:54)
[2022-11-03] MEDS: lisinopriL 5 MG TAB PO SCH (08:54)
[2022-11-03] MEDS: carvediloL 3.125 MG TAB PO SCH ×2 (08:54→20:25)
[2022-11-03] MEDS: levETIRAcetam 100 MG/ML ORASYR GT SCH ×2 (08:54→20:26)
[2022-11-03] MEDS: BUMETANIDE 1 MG/4 ML VIAL IV SCH ×2 (08:54→20:25)
[2022-11-03] MEDS: THERAHONEY GEL 42.5 GM TP SCH (13:00)
[2022-11-03] MEDS: GAUZE TP SCH (13:00)
--- NOTE | 2022-11-03 15:55 | NUR ---
11/03/2022 1555: US AND DR IN ROOM TO PERFORM RT THORACENTESIS. [id number].
--- NOTE | 2022-11-03 18:23 | NUR ---
11/03/2022 1800: PLEURAL FLUID OUT FROM THORACENTESIS 1500ML. [id number].
--- NOTE | 2022-11-03 19:30 | NUR ---
RECEIVED REPORT FROM DAY SHIFT NURSE FOR CONTINUITY OF CARE. PATIENT ALERT AND ORIENTED X 0, OPENS EYES, DOES NOT TRACK. ON TRACH TO VENT FIO2 24%, O2 SAT AT 100%., CAGLE IN PLACE, DRAINING CLEAR YELLOW URINE.NO S/SX OF DISTRESS. SKIN WARM, DRY AND INTACT. R UPPER ARM PICC IN PLACE.. ALL PRECAUTIONS IN PLACE.. WILL CONTINUE TO MONITOR.
--- NOTE | 2022-11-03 21:00 | NUR ---
SCHEDULED MEDICATIONS GIVEN. PT TOLERATED WELL.
[2022-11-04] VITALS: BP 164/49
--- NOTE | 2022-11-04 00:24 | NUR ---
PT ASLEEP. NO S/SX OF DISTRESS NOTED. BREATHING EVEN AND UNLABORED. VITALS STABLE. ALL PRECAUTIONS IN PLACE. WILL CONTINUE TO MONITOR.
[2022-11-04] MEDS: HYDRAGUARD CREAM TP SCH ×2 (01:12→13:30)
--- NOTE | 2022-11-04 01:15 | NUR ---
PT CLEANED AND REPOSITIONED. NO ACUTE DISTRESS NOTED. WILL CONTINUE TO MONITOR.
[2022-11-04 04:00] VITALS: BP 160/54
[2022-11-04] MEDS: LEVOTHYROXINE 0.025 MG TAB PO SCH (05:48)
[2022-11-04] MEDS: BLOOD GLUCOSE MONITORING 1 DEV DEV FS SCH ×3 (06:15→16:30)
--- NOTE | 2022-11-04 06:25 | NUR ---
PT CLEANED AND REPOSITIONED. NO ACUTE DISTRESS NOTED. WILL CONTINUE TO MONITOR.
[2022-11-04] MEDS: ALBUTEROL SULFATE/IPRATROPIU 3 ML SOL IH SCH ×2 (06:42→12:04)
--- NOTE | 2022-11-04 07:00 | NUR ---
RECEIVED PT ON PRVC 450,12,+5, 24%. VENT PLUGGED INTO RED OUTLET, WHEELS ARE LOCKED, AMBUBAG AT BEDSIDE, ALARMS ARE SERT AND AUDIBLE. SATURATION WAS 99%. BREATH SOUNDS WERE COARSE THROUGHOUT. SUCTIONED COPIOUS AMOUNT OF THICK PALE SECRETIONS. WILL CONTINUE TO MONITOR.
[2022-11-04 08:00] VITALS: BP 135/59
[2022-11-04] MEDS: BUMETANIDE 1 MG/4 ML VIAL IV SCH (09:00)
[2022-11-04] MEDS: lisinopriL 5 MG TAB PO SCH (09:00)
[2022-11-04] MEDS: carvediloL 3.125 MG TAB PO SCH (09:00)
[2022-11-04] MEDS: levETIRAcetam 100 MG/ML ORASYR GT SCH (09:00)
[2022-11-04] MEDS: PANTOPRAZOLE 40 MG TABEC PO SCH (09:00)
[2022-11-04] MEDS: ATORVASTATIN 20 MG TAB PO SCH (09:00)
[2022-11-04 12:00] VITALS: BP 135/59
--- NOTE | 2022-11-04 12:26 | NUR ---
DC PLANNING: PATIENT WILL BE RETURNING TO [facility] ROOM 126B # TO GIVE REPORT [phone] TRANSPORT WITH [facility] INTERVIEWER TIME 5 PM. NOTIFIED KONSTANTIN STONE CM TO FOLLOW
--- NOTE | 2022-11-04 12:52 | NUR ---
CALLED PT. SISTER -ÁNGELA VERA AT AND INFORMED HER OF PT. TRANSFER TO [facility] ROOM #126-B AND PICK-UP TIME AT 1700 BY [facility].
[2022-11-04] MEDS: THERAHONEY GEL 42.5 GM TP SCH (13:30)
[2022-11-04] MEDS: GAUZE TP SCH (13:30)
[2022-11-04 16:26] LABS: CARBON DIOXIDE 32.7 mmol/L (21-32); CREATININE 0.7 mg/dL (0.6-1.3)
[2022-11-04 16:35] LABS: POTASSIUM 2.7 mmol/L (3.5-5.1)
[2022-11-04] MEDS ORDERED: POTASSIUM CHLORIDE 20% 40 MEQ/15 ML UDC GT PRN (16:40)
--- NOTE | 2022-11-04 17:25 | NUR ---
POTASSIUM 40 MEQ GT GIVEN X1 PER BRANDON JACK ORDER. TOLERATED WELL. NO REACTION NOTED.
[2022-11-04] MEDS ORDERED: POTASSIUM CHLORIDE 20% 40 MEQ/15 ML UDC GT SCH (17:30)
[2022-11-04 17:36] VITALS: BP 122/38
== END 2022-11-04 17:45 | DRG 870 ==
LOC: MED 16:07 → MTU 19:32
PROVIDERS: ADMIT Family Medicine; ATTEND Family Medicine
PROC: 5A1955Z Respiratory Ventilation, Greater than 96 Consecutive Hours (ICD-10-PCS; principal; 2022-10-26)
PROC: 02HV33Z Insertion of Infusion Device into Superior Vena Cava, Percutaneous Approach (ICD-10-PCS; 2022-11-02)
PROC: B548ZZA Ultrasonography of Superior Vena Cava, Guidance (ICD-10-PCS; 2022-11-02)
PROC: 0W9B3ZZ Drainage of Left Pleural Cavity, Percutaneous Approach (ICD-10-PCS; 2022-11-03)
PROC: 0W993ZZ Drainage of Right Pleural Cavity, Percutaneous Approach (ICD-10-PCS; 2022-11-03)
DX: A41.9 Sepsis, unspecified organism (principal); J69.0 Pneumonitis due to inhalation of food and vomit; E43 Unspecified severe protein-calorie malnutrition; J96.21 Acute and chronic respiratory failure with hypoxia; R53.2 Functional quadriplegia; I50.23 Acute on chronic systolic (congestive) heart failure; N39.0 Urinary tract infection, site not specified; E87.0 Hyperosmolality and hypernatremia; J90 Pleural effusion, not elsewhere classified; Z93.0 Tracheostomy status; I11.0 Hypertensive heart disease with heart failure; E78.5 Hyperlipidemia, unspecified; G40.909 Epilepsy, unspecified, not intractable, without status epilepticus; D64.9 Anemia, unspecified; Z20.822 Contact with and (suspected) exposure to COVID-19; E03.8 Other specified hypothyroidism; E86.0 Dehydration; I35.1 Nonrheumatic aortic (valve) insufficiency; Z86.73 Personal history of transient ischemic attack (TIA), and cerebral infarction without residual deficits; Z93.1 Gastrostomy status; Z79.891 Long term (current) use of opiate analgesic; Z79.899 Other long term (current) drug therapy; Z68.32 Body mass index [BMI] 32.0-32.9, adult; E11.9 Type 2 diabetes mellitus without complications
CPT/HCPCS: 36415; 36600; 71045; 76604; 76942; 80048; 80053; 81001; 82150; 82803; 82948; 83036; 83605; 83690; 83735; 83880; 84100; 84436; 84439; 84443; 84479; 84484; 85025; 85610; 85730; 87040; 87070; 87081; 87086; 87205; 93971; 94003; 94640; 96365; 96367; 96375; 99291; J0696; J1120; J1644; J1650; J1940; J2001; J2543; J3480; J3490; J7060; P9046; Q0092